=== PATIENT | female | born 1955 | race Two or more races ===

== ENCOUNTER 2024-05-29 00:40 | Emergency (ER) | payer OTHER ==
[~2024-05-29] VITALS: Ht 154.9 cm; Wt 77.4 kg
[2024-05-29 01:50] VITALS: BP 158/77; PULSE 70; RESP 18; TEMP 98; O2SAT 98
--- NOTE | 2024-05-29 01:52 | DVH ---
EXAM: CT HEAD WITHOUT CONTRAST INDICATION: head injury TECHNIQUE: CT of the head without intravenous contrast. Radiation Dose : 1. Head: CT Dose: CTDI volume is 50 mGy. Dose-length product is 514 mGy*cm The dose indicators for CT are the volume Computed Tomography (CT) Dose Index (CTDIvol) and the Dose Length Product (DLP), and are measured in units of mGy and mGy-cm, respectively. These indicators are not patient dose, but values generated from the CT scanner acquisition factors. The report includes radiation exposure data for exposures received during this examination. COMPARISON: None FINDINGS: There is no evidence of acute intracranial hemorrhage, extra-axial collection, mass effect, midline s hift, herniation or hydrocephalus. The ventricles, sulci and cisterns are age appropriate. The jeffries-white differentiation is intact. Patchy periventricular and subcortical white matter hypoattenuation is nonspecific but may be related to small vessel ischemic disease. The visualized paranasal sinuses and mastoid air cells are clear. The surrounding soft tissues and osseous structures are unremarkable. IMPRESSION: No acute intracranial abnormality. Radiation optimization: All CT scans at this facility use at least one of these dose optimization jyotsna hniques: automated exposure control mA and/or kV adjustment per patient size (includes targeted exam s where dose is matched to clinical indication) or iterative reconstruction.
--- NOTE | 2024-05-29 01:55 | DVH ---
EXAM: CT CERVICAL WITHOUT CONTRAST INDICATION: neck pain EXAM DATE: 05/29/2024 01:13 AM COMPARISON: None TECHNIQUE: CT of the cervical spine without intravenous contrast. Radiation Dose Information: CT Dose: CTDI volume is 22 mGy. Dose-length product is 514 mGy*cm FINDINGS: The cervical alignment is intact. No acute cervical spine fracture is identified. The vertebral bod y heights are intact. No suspicious osseous lesions are identified. The craniocervical junction judd ears intact. Moderate degenerative changes are identified. There is no prevertebral soft tissue swe lling. IMPRESSION: No evidence of acute cervical spine fracture or malalignment. END IMPRESSION:
--- NOTE | 2024-05-29 01:56 | DVH ---
RIGHT KNEE RADIOGRAPHS CLINICAL HISTORY: right knee pain TECHNIQUE: AP, lateral, oblique and sunrise views of the right knee. Comparison: None FINDINGS/IMPRESSION: There is no evidence of fracture or dislocation. The alignment of the right knee is appropriate. Tric ompartmental osteoarthritic degenerative changes. Small knee joint effusion..The surrounding soft tis sues appear unremarkable.
[2024-05-29] MEDS ORDERED: ACET500T58 PO (02:36)
--- NOTE | 2024-05-29 02:36 | ED.PDOC ---
HPI (NEURO) HPI Comments 68-year-old female presents to ER with complaints of fall injury times one day. Patient reports that she tripped and fell at 10:00 p.m. prior to arrival to ER while walking outside and hit her right knee and right side of forehead against hard ground and has since been experiencing 5/10 right-sided headache, right- sided neck pain and right knee pain. Denies LOC. Denies use of medications for current symptoms. Patient presents to ER ambulatory on arrival, alert oriented x4, with steady gait, in no distress with a small abrasion noted to right knee. Denies nausea/vomiting, numbness/tingling, dizziness, confusion, vision changes, use of blood thinners, shortness of breath, chest pain, hip pain or any further symptoms/complaints Chief Complaint: Fall Injury Time Seen by MD: 01:02 Primary Care Provider: UNKNOWN Reviewed Notes: Nurses Notes, Medications, Allergies Information Source: Patient Mode of Arrival: Ambulatory Past Medical History PAST MEDICAL HISTORY: DM, High Lipids, HTN Surgical History: Family History Family History: Unknown Social History Smoker: Non-Smoker Alcohol: Denies ETOH Use Drugs: Denies Drug Use Lives In: Home Constitutional: denies: chills, diaphoresis, fatigue, fever, malaise, sweats, weakness, others EENTM: denies: blurred vision, double vision, ear bleeding, ear discharge, ear drainage, ear pain, ear ringing, eye pain, eye redness, hearing loss, mouth pain, mouth swelling, nasal discharge, nose bleeding, nose congestion, nose pain, photophobia, tearing, throat pain, throat swelling, voice changes, others Respiratory: denies: cough, hemoptysis, orthopnea, SOB at rest, shortness of breath, SOB with excertion, stridor, wheezing, others Cardiovascular: denies: chest pain, dizzy spells, diaphoresis, Dyspnea on exertion, edema, irregular heart beat, left arm pain, lightheadedness, palpitations, PND, syncope, others Gastrointestinal: denies: abdomen distended, abdominal pain, blood streaked bowels, constipated, diarrhea, dysphagia, difficulty swallowing, hematemesis, melena, nausea, poor appetite, poor fluid intake, rectal bleeding, rectal pain, vomiting, others Genitourinary: denies: abnormal vagina bleeding, burning, dyspareunia, dysuria, flank pain, frequency, hematuria, incontinence, pain, , vagina discharge, urgency, others Neurological: reports: others (As stated in HPI) Musculoskeletal: reports: others (As stated in HPI) Integumetry: reports: others (As stated in HPI) Allergic/Immunocompromised: denies: Difficulty Healing, Frequent Infections, Hives, Itching, others Hematologic/Lymphatic: denies: anemia, blood clots, easy bleeding, easy bruising, swollen glands, others Endocrine: denies: excessive hunger, excessive sweating, excessive thirst, excessive urination, flushing, intolerance to cold, intolerance to heat, unexplained weight gain, unexplained weight loss, others Psychiatric: denies: anxiety, bipolar disorder, depression, hopeless, panic disorder, schizophrenia, sleepless, suicidal, others Physical Exam General Appearance: No Apparent Distress, Obese HEENT: Normal ENT Inspection, PERRL/EOMI, Pharynx Normal, TMs Normal Neck: Full Range of Motion, Other (Slight TTP to right cervical paraspinals noted. No skin changes appreciated) Respiratory: Chest Non-Tender, Lungs Clear, No Accessory Muscle Use, No Respiratory Distress, Normal Breath Sounds Cardiovascular: No Murmur, No Gallop, Regular Rate/Rhythm Breast Exam: Deferred Gastrointestinal: NOT DONE Genitalia: Deferred Pelvic: Deferred Rectal: Deferred Extremities: Normal capillary refill, Normal range of motion Musculoskeletal : Extremity Location: Knee (Small abrasion noted to right knee. No deformity/further skin changes appreciated. Patient able to fully move right knee without difficulty. Pulses intact. Steady gait noted) Neurologic: Alert (GCS 15), retort operator II-XII nml as Tested, No Motor Deficits, Normal Affect, Normal Mood, No Sensory Deficits Cerebellar Function: Normal Reflexes: Normal Skin: Dry, Warm Peripheral Pulses: 2+ carotid (R), 2+ carotid (L), 2+ dorsalis pedis (R), 2+ dorsalis pedis (L), 2+ Radial (R), 2+ Radial (L), 2+ Brachial (R), 2+ Brachial (L) Lymphatic: No Adenopathy Was a procedure done? Was a procedure done?: No Sedation Sedation?: No Differential Diagnosis (SZ) Headache: Subarachnoid Hemorrhage, Subdural Hemorrhage, Other (Laceration, fracture) X-Ray, Labs, Meds, VS Vital Signs Date Time Temp Pulse Resp B/P (MAP) Pulse Ox O2 Delivery O2 Flow Rate FiO2 05/29/24 00:58 98.2 73 16 174/70 (104) 100 PATIENT: ARIELLE SUTHERLANDT: [id number]: [id number] : 1955 LOC: ER ROOM / BED: / AGE / SEX: 68 / F ADM STATUS: REG ER SERVICE 1 ORDERING PHYSICIAN: SOTO RUELAS PROCEDURE(s): RKN3 - R KNEE 3V XRAY REASON: right knee pain ORDER NUMBER(s): [id number], ACCESSION NUMBER(s): [id number] RIGHT KNEE RADIOGRAPHS CLINICAL HISTORY: right knee pain TECHNIQUE: AP, lateral, oblique and sunrise views of the right knee. Comparison: None FINDINGS/IMPRESSION: There is no evidence of fracture or dislocation. The alignment of the right knee is appropriate. Tricompartmental osteoarthritic degenerative changes. Small knee joint effusion..The surrounding soft tissues appear unremarkable. ATED BY: JUAN DANIEL CRESPO DO DICTATED DATE/TIME: 05/29/24153 SIGNED BY: JUAN DANIEL CRESPO DO SIGNED DATE/TIME: 05/29/24153 CC: PATIENT: ARIELLE SUTHERLANDT: [id number] UNIT: [id number] : 1955 LOC: ER ROOM / BED: / AGE / SEX: 68 / F ADM STATUS: REG ER SERVICE ORDERING PHYSICIAN: SOTO RUELAS PROCEDURE(s): HWOCT - HEAD WITHOUT CONTRAST REASON: head injury ORDER NUMBER(s): [id number], ACCESSION NUMBER(s): [id number] EXAM: CT HEAD WITHOUT CONTRAST INDICATION: head injury TECHNIQUE: CT of the head without intravenous contrast. Radiation Dose : 1. Head: CT Dose: CTDI volume is 50 mGy. Dose-length product is 514 mGy*cm The dose indicators for CT are the volume Computed Tomography (CT) Dose Index (CTDIvol) and the Dose Length Product (DLP), and are measured in units of mGy and mGy-cm, respectively. These indicators are not patient dose, but values generated from the CT scanner acquisition factors. The report includes radiation exposure data for exposures received during this examination. COMPARISON: None FINDINGS: There is no evidence of acute intracranial hemorrhage, extra-axial collection, mass effect, midline shift, herniation or hydrocephalus. The ventricles, sulci and cisterns are age appropriate. The jeffries-white differentiation is intact. Patchy periventricular and subcortical white matter hypoattenuation is nonspecific but may be related to small vessel ischemic disease. The visualized paranasal sinuses and mastoid air cells are clear. The surrounding soft tissues and osseous structures are unremarkable. IMPRESSION: No acute intracranial abnormality. Radiation optimization: All CT scans at this facility use at least one of these dose optimization techniques: automated exposure control mA and/or kV adjustment per patient size (includes targeted exams where dose is matched to clinical indication) or iterative reconstruction. ATED BY: JUAN DANIEL CRESPO DO DICTATED DATE/TIME: 05/29/24149 SIGNED BY: JUAN DANIEL CRESPO DO SIGNED DATE/TIME: 05/29/24149 CC: PATIENT: ARIELLE SUTHERLANDACCT: [id number] UNIT: [id number] : 1955 LOC: ER ROOM / BED: / AGE / SEX: 68 / F ADM STATUS: REG ER SERVICE ORDERING PHYSICIAN: SOTO RUELAS PROCEDURE(s): CS2 - CERVICAL WITHOUT CONTRAST REASON: neck pain ORDER NUMBER(s): [id number], ACCESSION NUMBER(s): [id number] EXAM: CT CERVICAL WITHOUT CONTRAST INDICATION: neck pain EXAM DATE: 05/29/2024 01:13 AM COMPARISON: None TECHNIQUE: CT of the cervical spine without intravenous contrast. Radiation Dose Information: CT Dose: CTDI volume is 22 mGy. Dose-length product is 514 mGy*cm FINDINGS: The cervical alignment is intact. No acute cervical spine fracture is identified. The vertebral body heights are intact. No suspicious osseous lesions are identified. The craniocervical junction appears intact. Moderate d egenerative changes are identified. There is no prevertebral soft tissue swelling. IMPRESSION: No evidence of acute cervical spine fracture or malalignment. END IMPRESSION: ATED BY: JUAN DANIEL CRESPO DO DICTATED DATE/TIME: 05/29/24152 SIGNED BY: JUAN DANIEL CRESPO DO SIGNED DATE/TIME: 05/29/24152 CC: Right knee x-ray reviewed CT head without contrast reviewed CT cervical without contrast reviewed Patient reported improvement in symptoms and in no distress during ER visit/prior to discharge Advised on rest/no strenuous activity, elevation and alternate ice on/off as needed for pain Advised to follow up with PCP in 1-2 days Patient alert and oriented x4 prior to discharge. Patient verbalized understanding and agreeable with current plan of care Advised to return to ER immediately if symptoms worsen Images Reviewed?: Images reviewed and evaluated by me Time of 1ST Reevaluation: 02:12 Reevaluation 1ST: N/A Patient Education/Counseling: Diagnosis, Treatment, Prognosis, Need For Follow Up Family Education/Counseling: Diagnosis, Treatment, Prognosis, Need For Follow Up Departure 1 Departure Time of Disposition: 02:32 Impression: Primary Impression: Head injury Qualified Codes: S09.90XA - Unspecified injury of head, initial encounter Additional Impressions: Cervical strain Qualified Codes: S16.1XXA - Strain of muscle, fascia and tendon at neck level, initial encounter Abrasion of knee, right Qualified Codes: S80.211A - Abrasion, right knee, initial encounter Disposition: 01 HOME / SELF CARE / HOMELESS Condition: Stable e-Prescriptions Acetaminophen (Acetaminophen) 500 Mg Tab 500 MG PO Q4HPRN, #30 TAB 0 Refills Prov: SOTO RUELAS 05/29/24 Discharged With: Other (daughter) Critical Care Note Critical Care Time?: No Stability Stability form required: No Heart Score Heart Score: Heart Score Response (Comments) Value History N/A 0 EKG N/A 0 Age N/A 0 Risk Factors N/A 0 Troponin N/A 0 Total 0 SOTO RUELAS May 29, 2024 02:36
== END 2024-05-29 03:22 | disposition home or self-care (01) ==
LOC: ER 00:40
DX: S16.1XXA Strain of muscle, fascia and tendon at neck level, initial encounter (principal); S80.211A Abrasion, right knee, initial encounter; S09.8XXA Other specified injuries of head, initial encounter; I10 Essential (primary) hypertension; E11.9 Type 2 diabetes mellitus without complications; E78.5 Hyperlipidemia, unspecified; Z98.890 Other specified postprocedural states; W01.198A Fall on same level from slipping, tripping and stumbling with subsequent striking against other object, initial encounter; Y93.01 Activity, walking, marching and hiking; Y92.89 Other specified places as the place of occurrence of the external cause; Y99.8 Other external cause status
CPT/HCPCS: 70450; 72125; 73562